=== PATIENT | male | born 1990 | race Caucasian/White ===

== ENCOUNTER 2020-03-27 15:49 | Emergency (ER) | payer SELFPAY ==
[2020-03-27 15:57] VITALS: BP 155/69
--- NOTE | 2020-03-27 16:15 | ER Document Report ---
HPI - HPI Patient complains to provider of: Cough, Covid testing Time Seen by Provider: 03/27/20 16:03 Notes: 29-year-old male to the emergency department with complaints of a cough that began about a week ago. He states initially started as productive. He denies any associated body aches, fevers, chills, sore throat, ear pain, nausea, vomiting, diarrhea. He also denies any loss of taste or smell. He states that his employer is requiring him to come get a Covid test before he can return to work. He states he was working on a job last week and a little boy had an upper respiratory infection. He is not sure if the little boy ever was tested for Covid. He denies any other possible sick contacts. - ROS Systems Reviewed and Negative: Yes All other systems reviewed and negative - CONSTITUTIONAL Constitutional: DENIES: Fever, Chills - EENT EENT: DENIES: Sore Throat, Ear Pain, Congestion - NEURO Neurology: DENIES: Headache, Weakness - CARDIOVASCULAR Cardiovascular: DENIES: Chest pain - RESPIRATORY Respiratory: REPORTS: Coughing. DENIES: Trouble Breathing - GASTROINTESTINAL Gastrointestinal: DENIES: Abdominal Pain, Nausea, Patient vomiting, Diarrhea - MUSCULOSKELETAL Musculoskeletal: DENIES: Extremity pain, Back Pain, Neck Pain, Swelling - DERM Skin Color: Normal Skin Problems: None Past Medical History - General Information source: Patient - Social History Smoking Status: Current Every Day Smoker Frequency of alcohol use: Social Drug Abuse: None Family History: Reviewed & Not Pertinent Vertical Provider Document - CONSTITUTIONAL Agree With Documented VS: Yes Exam Limitations: No Limitations General Appearance: WD/WN, No Apparent Distress - HEENT HEENT: Atraumatic, Normocephalic, PERRLA Notes: TMs are clear bilaterally. No pharyngeal erythema or exudates. Airway is grossly patent. No drooling, muffled voice, Alberto's angina. - NECK Neck: Normal Inspection, Supple - RESPIRATORY Respiratory: Breath Sounds Normal, No Respiratory Distress. negative: Rales, Rhonchi, Wheezing Notes: Mild hacking cough. No adventitious breath sounds on exam - CARDIOVASCULAR Cardiovascular: Regular Rate, Regular Rhythm, No Murmur - GI/ABDOMEN Gastrointestinal: Abdomen Soft, Abdomen Non-Tender, No Organomegaly - BACK Back: Normal Inspection - MUSCULOSKELETAL/EXTREMETIES Musculoskeletal/Extremeties: MAEW, FROM, Non-Tender - NEURO Level of Consciousness: Awake, Alert, Appropriate - DERM Integumentary: Warm, Dry, No Rash Course - Re-evaluation Re-evalutation: 03/27/20 Impression: Cough with upper respiratory illness and need for Covid testing for work clearance. Advised patient that we could test him here in the emergency department but that the results would not come back for 3 to 5 days. Advised that he must quarantine until he gets a negative result. I offered him a chest x-ray. Patient declines. I have encouraged him to return if he gets worse. Patient agrees with the plan. Patient was provided with discharge information including: As a person under investigation for COVID-19, [facility], division of public health advises you to adhere to the following guidance until your test results are reported to you. If your test result is positive, you will receive additional information from your provider and your local health department at that time. Remain at home until you are cleared by the healthcare provider public health authorities. Keep a log of visitors to your home and notify any visitors to your home of your isolation status. If you plan to move to a new address or leave the country, notify the local health department and your County. Call your doctor or seek care if you have an urgent medical need. Before seeking medical care, call ahead to get instructions from the provider before arriving at the medical office, clinic, or hospital. Notify them that you are being tested for the virus that causes COVID-19 so that arrangements can be made, as necessary, to prevent transmission to others in the healthcare setting. Next, notify the local health department and your County. If a medical emergency arises and you need to call 911, informed the first responders that you are being tested for the virus that causes COVID-19. Next, notified the local health department and your County. - Vital Signs Vital signs: Temp Pulse Resp BP Pulse Ox 98.1 F 55 L 18 155/69 H 98 03/27/20 15:57 03/27/20 15:57 03/27/20 15:57 03/27/20 15:57 03/27/20 15:57 Discharge - Discharge Clinical Impression: Cough, Encounter for laboratory testing for COVID-19 virus Upper respiratory infection Qualifiers: URI type: unspecified URI Qualified Code(s): J06.9 - Acute upper respiratory infection, unspecified Condition: Stable Disposition: HOME, SELF-CARE Instructions: COVID-19 Guidance for Persons Under Investigation, Upper Respiratory Illness ([facility]) Additional Instructions: You have been tested today for covid. The Covid test comes back in 3 to 5 days. Please quarantine until you have further information. You have been written for work note. You may use cough medicine as prescribed. As a person under investigation for COVID-19, [facility], division of public health advises you to adhere to the following guidance until your test results are reported to you. If your test result is positive, you will receive additional information from your provider and your local health department at that time. Remain at home until you are cleared by the healthcare provider public health authorities. Keep a log of visitors to your home and notify any visitors to your home of your isolation status. If you plan to move to a new address or leave the country, notify the local health department and your County. Call your doctor or seek care if you have an urgent medical need. Before seeking medical care, call ahead to get instructions from the provider before arriving at the medical office, clinic, or hospital. Notify them that you are being tested for the virus that causes COVID-19 so that arrangements can be made, as necessary, to prevent transmission to others in the healthcare setting. Next, notify the local health department and your County. If a medical emergency arises and you need to call 911, informed the first responders that you are being tested for the virus that causes COVID-19. Next, notified the local health department and your County. Prescriptions: Benzonatate [Tessalon Perles 100 mg Capsule] 100 mg PO [id number] PRN #40 capsule PRN Reason: Forms: Return to Work Referrals: [facility] [Provider Group] - Follow up in 3-5 days
== END 2020-03-27 16:39 | disposition home or self-care (01) ==
LOC: ER 15:49
DX: J06.9 Acute upper respiratory infection, unspecified (principal); R05 Cough; F17.200 Nicotine dependence, unspecified, uncomplicated; Z20.828 Contact with and (suspected) exposure to other viral communicable diseases
CPT/HCPCS: 99282; 87635; C9803